=== PATIENT | born 1990 | race African-American/Black ===

== ENCOUNTER 2019-05-08 18:41 | Emergency (ER) | payer MEDICAID ==
[~2019-05-08] VITALS: Ht 182.9 cm; Wt 85.0 kg
[2019-05-08 18:45] VITALS: BP 139/94
== END 2019-05-09 01:04 | disposition left against medical advice (07) ==
LOC: ER 18:41
DX: Z53.21 Procedure and treatment not carried out due to patient leaving prior to being seen by health care provider (principal)